=== PATIENT | female | born 1995 | race Hispanic/Latino ===

== ENCOUNTER 2018-09-24 12:40 | Inpatient (IN) | payer SELFPAY ==
[2018-09-24] MEDS ORDERED: Acetaminophen 500 MG TAB ONE (12:58)
[2018-09-24 13:18] LABS: #Lymphocytes 0.8 thou/uL (1.20-3.40); #Monocytes 0.7 thou/uL (0.11-0.59); #Neutrophils 4.8 thou/uL (1.40-6.50); %Eosinophils 0.2 % (0.0-10.0); %Lymphocytes 12.7 % (21.0-51.0); %Monocytes 11.1 % (0.0-10.0); Hemoglobin 13.3 g/dL (12.0-16.0); Mean Corpuscular HGB CONC 31.9 g/dL (32.0-36.0); Mean Corpuscular Hemoglobin 27.6 pg (27.0-31.0); Mean Corpuscular Volume 86.5 fL (78.0-98.0); Mean Platelet Volume 8.8 fL (7.4-10.4); Platelet Count 171 thou/uL (130-400); RBC Distribution Width 12.3 % (11.5-14.5); Red Blood Cell (RBC) Count 4.81 mill/uL (4.20-5.40); White Blood Cell (WBC) Count 6.4 thou/uL (4.8-10.8)
[2018-09-24 13:28] LABS: BHCG - Serum Negative (NEGATIVE); Pregs Control Background? CLEAR/WHITE (CLR/WHITE); Pregs Control Bar Appear? YES (CONTROL BAR)
[2018-09-24 13:42] LABS: Bilirubin Negative (Negative); Blood, Urine 1+ (Negative); Clarity Turbid (Clear); Glucose, Urine (Dipstick) Normal (Negative); Leukocyte 500 Leu/uL (Negative); Nitrite Negative (Negative); Protein, Urine (Dipstick) 30 mg/dL (Neg-Trace); Urobilinogen Normal mg/dL (Less than 2); WBC/HPF 21-50 HPF (0-3)
[2018-09-24 13:48] LABS: ALT (SGPT) 13 U/L (8-55); AST (SGOT) 12 U/L (5-34); Albumin 4.3 g/dL (3.5-5.0); Alkaline Phosphatase 70 U/L (40-150); Anion Gap 12 mmol/L (10-20); BUN (Urea Nitrogen) 9 mg/dL (7.0-18.7); Bilirubin, Total 0.4 mg/dL (0.2-1.2); CK (CPK) 53 U/L (29-168); Calc. Creatinine Clearance 0 mL/min (70-130); Calcium 9.4 mg/dL (7.8-10.44); Carbon Dioxide 24 mmol/L (22-29); Chloride 104 mmol/L (98-107); Estimated GFR-MDRD Greater than 90; Globulin 3.3 g/dL (2.4-3.5); Glucose 115 mg/dL (70-105); Potassium 3.9 mmol/L (3.5-5.1); Protein, Total 7.6 g/dL (6.0-8.3); Sodium 136 mmol/L (136-145)
[2018-09-24 13:56] LABS: Bacteria/HPF 2+ HPF (None Seen); Mucous/LPF 1+ LPF (<2+); Squamous Epithelial 21-50 HPF (0-3)
--- NOTE | 2018-09-24 14:02 | RAD ---
CHEST 1 VIEW: Date: 09/24/18 HISTORY: Cough. COMPARISON: None. FINDINGS: There is right middle lobe air space opacity. No pneumothorax. No significant effusion. Heart size is normal. IMPRESSION: Right middle lobe pneumonia. Follow-up after treatment recommended. POS: HOME
[2018-09-24] MEDS ORDERED: Sodium Chloride 0.9% 200 ML ONE (15:56)
[2018-09-24] MEDS ORDERED: Azithromycin 500 MG VIAL ONE (15:56)
[2018-09-24] MEDS ORDERED: cefTRIAXone\\ROCEPHIN 2 GM VIAL ONE (15:56)
--- NOTE | 2018-09-24 16:31 | CT ---
EXAM: Abdomen and pelvic CT scan without contrast: HISTORY: Left back pain COMPARISON: 10/02/2011 FINDINGS: Anterior right lung base consolidation localizing the right middle lobe, with surrounding groundglass reticulonodular opacities as well as ground glass desiccation of the left lower lobe suggests pneumonia. Liver: Crush unremarkable by noncontrast appearance Gallbladder: Unremarkable. Pancreas: Unremarkable Spleen: Unremarkable. Adrenal glands: Unremarkable. Kidneys: Punctate nonobstructive left nephrolithiasis. There is a punctate calcification of the left renal hilar region which may relate to a punctate vascular calcification. No hydronephrosis of either kidney Bowel: Incompletely evaluated by noncontrast technique Urinary Bladder: The urinary bladder is unremarkable. Adenopathy: No adenopathy within the abdomen or pelvis. Free Air: No free air. Ascites: No ascites. Osseous structures: No acute osseous abnormalities. IMPRESSION: Punctate nonobstructive left urinary tract calculi. Incidental note of consolidation at the lung bases indicative of pneumonia. Recommend continued radio graphic follow-up
[2018-09-24 20:33] VITALS: BMI 32.0
[2018-09-24] MEDS ORDERED: Acetaminophen 325 MG TAB PO PRN (20:55)
[2018-09-24] MEDS ORDERED: Ondansetron PF 4 MG/2 ML Vial IVP PRN ×2 (20:55→22:08)
[2018-09-24] MEDS ORDERED: Sodium Chloride 0.9% 1,000 ML IV SCH (20:55)
[2018-09-24] MEDS ORDERED: Ondansetron ODT 4 MG TAB SL PRN (20:55)
[2018-09-24] MEDS ORDERED: Ibuprofen 200 MG TAB PO PRN (22:08)
[2018-09-24] MEDS ORDERED: Ondansetron ODT 4 MG TAB PO PRN (22:08)
[2018-09-24] MEDS ORDERED: Diabetic Tussin 200 MG/10 ML UDCUP PO PRN (22:08)
[2018-09-24] MEDS ORDERED: Acetaminophen 500 MG TAB PO PRN (22:08)
[2018-09-24] MEDS: Sodium Chloride 0.9% 1,000 ML IV SCH (22:41)
--- NOTE | 2018-09-25 00:51 | HP ---
PRIMARY CARE PROVIDER: [facility]. CHIEF COMPLAINT: Cough and abdominal pain. HISTORY OF PRESENT ILLNESS: This is a 23-year-old female, who presented to [facility] Emergency Department complaining of back, chest, and abdominal pain with associated coughing. The patient noted productive sputum over the last 3 to 4 days with associated fever, taking Motrin for symptomatic relief. The patient denied any known sick contacts or family members with similar symptoms. The patient denied any specific travel history and initially rated the pain 8/10. The patient denied any chronic lung conditions or exposure history, but does work at [employer]. In the emergency room, the patient underwent general evaluation with documented fever up to 100.8 degrees Fahrenheit and meeting sepsis criteria with elevated pulse and respiratory rate. Chest imaging showed a right middle lobe infiltrate at which point, the patient received Zithromax and Rocephin in addition to normal saline x2 liters and acetaminophen. PAST MEDICAL HISTORY: Reviewed and negative. PAST SURGICAL HISTORY: Reviewed and negative. CURRENT MEDICATIONS: Reviewed and negative. ALLERGIES: NO KNOWN DRUG ALLERGIES. FAMILY HISTORY: No inheritable diseases per patient report. SOCIAL HISTORY: Resides in [place], [place]. . Works at [employer]. No current alcohol, tobacco, or illicit drug use. REVIEW OF SYSTEMS: CONSTITUTIONAL: Negative for weight loss or gain, ability to conduct usual activities. SKIN: Negative for rash, itching. EYES: Negative for double vision, pain. ENT/MOUTH: Negative for nose bleeding, neck stiffness, pain, tenderness. CARDIOVASCULAR: Negative for palpitations, dyspnea on exertion, orthopnea. RESPIRATORY: Negative for shortness of breath, wheezing, cough, hemoptysis, fever or night sweats. GASTROINTESTINAL: Negative for poor appetite, abdominal pain, heartburn, nausea, vomiting, constipation, or diarrhea. GENITOURINARY: Negative for urgency, frequency, dysuria, nocturia. MUSCULOSKELETAL: Negative for pain, swelling. NEUROLOGIC/PSYCHIATRIC: Negative for anxiety, depression. ALLERGY/IMMUNOLOGIC: Negative for skin rash, bleeding tendency. Otherwise negative except as stated per HPI. PHYSICAL EXAMINATION: VITAL SIGNS: On admission, blood pressure 122/79, pulse 121, respiratory rate 20, temperature 100.8 degrees Fahrenheit, O2 saturation 96% on room air. GENERAL APPEARANCE: This is a 23-year-old female, alert and oriented x3, smiling, in no acute distress. HEENT: Pupils are equal, round, reactive to light and accommodation. Extraocular muscles are intact. No scleral icterus. No conjunctival injection. Nares are patent. OP is clear. Teeth in good repair. NECK: Supple. No cervical adenopathy. No thyromegaly. No carotid bruits. No JVD appreciated. Cervical spine with full active and passive range of motion. No meningeal signs noted. CHEST: Diminished breath sounds in the bases bilaterally with scattered coarse breath sounds in the right lung base. CARDIOVASCULAR EXAM: S1-S2 without noted murmur, rub, or gallop. Positive tachycardia. ABDOMEN: Rounded, soft, nontender, and nondistended. Bowel sounds are positive in all 4 quadrants. There is no hepatosplenomegaly. No abdominal bruits. No rebound or guarding appreciated. EXTREMITIES: Warm and dry with fair turgor. No clubbing, cyanosis, or asymmetric edema appreciated. Pulses palpable distally at the dorsalis pedis, posterior tibial, and popliteal arteries bilaterally. Capillary refill less than 2 seconds. NEUROLOGIC: Cranial nerves 2 through 12 are grossly intact. No focal or lateralizing signs appreciated. PERTINENT LAB AND X-RAY FINDINGS: Complete metabolic profile within normal limits. Serum beta-hCG negative. Lactic acid level 0.7. CBC showed a white blood cell count of 6.4, hemoglobin 13, hematocrit 42, platelet count 171 with 76% neutrophils. Urinalysis showed positive leukocyte esterase with 7-10 rbc's per high-power field and 21-50 wbc's per high-power field, 21-[address] epithelial cells noted. CT of the abdomen and pelvis dated 09/24/2018, showed nonobstructive left urinary tract calculi. Consolidation of the lung bases noted. Portable chest x-ray dated 09/24/2018, showed right middle lobe infiltrate concerning for pneumonia. ASSESSMENT/PLAN: 1. Sepsis secondary to bacterial pneumonia. The patient will be admitted to the medical floor. Initial IV fluid resuscitation instituted in the emergency room. We will continue Levaquin 750 mg IV q.24 hours. Continue intravenous normal saline at 100 mL/h. Await blood cultures x2. Initial lactic acid level negative. 2. Bacterial pneumonia. Suspect gram-positive cocci. See #1 above. Continue general pulmonary supportive management. Continue Levaquin 750 mg IV q.24 hours. 3. Urinary tract infection, suspected given initial urinalysis results. Continue Levaquin as outlined previously and await final urine culture results. Continue IV fluids as outlined previously. 4. Abdominal pain. Suspect secondarily to #1 and #3. Continue supportive management. Serial abdominal exams. 5. Prophylaxis. SCDs while in bed. Pepcid 20 mg p.o. b.i.d. 6. Code status is full. Surrogate medical decision maker is the patient's spouse. Job ID: [id number]
[2018-09-25 05:41] LABS: Anion Gap 9 mmol/L (10-20); BUN (Urea Nitrogen) 7 mg/dL (7.0-18.7); Calc. Creatinine Clearance 186 mL/min (70-130); Calcium 8.2 mg/dL (7.8-10.44); Carbon Dioxide 23 mmol/L (22-29); Chloride 108 mmol/L (98-107); Estimated GFR-MDRD Greater than 90; Glucose 120 mg/dL (70-105); Potassium 3.5 mmol/L (3.5-5.1); Sodium 136 mmol/L (136-145)
[2018-09-25 05:57] LABS: Band 5 % (5-11); Hemoglobin 11.5 g/dL (12.0-16.0); Lymphocytes 23 % (21-51); MDiff Complete? YES; Mean Corpuscular HGB CONC 31.4 g/dL (32.0-36.0); Mean Corpuscular Hemoglobin 27.5 pg (27.0-31.0); Mean Corpuscular Volume 87.5 fL (78.0-98.0); Mean Platelet Volume 8.6 fL (7.4-10.4); Monocytes 3 % (0-10); Neutrophil 69 % (42-75); Platelet Count 155 thou/uL (130-400); Platelet Morphology Comment Appears Adequate; RBC Distribution Width 12.3 % (11.5-14.5); RBC Morphology Normal; Red Blood Cell (RBC) Count 4.17 mill/uL (4.20-5.40); White Blood Cell (WBC) Count 4.2 thou/uL (4.8-10.8)
[2018-09-25] MEDS ORDERED: Loratadine 10 MG TAB PO PRN (08:04)
[2018-09-25] MEDS ORDERED: Loperamide HCl 2 MG CAP PO PRN (08:04)
[2018-09-25] MEDS ORDERED: Zolpidem Tartrate 5 MG TAB PO PRN (08:04)
[2018-09-25] MEDS ORDERED: hydrALAZINE 20 MG/ML VIAL SLOW IVP PRN (08:04)
[2018-09-25] MEDS ORDERED: Bisacodyl 5 MG TAB PO PRN (08:04)
[2018-09-25] MEDS ORDERED: Senokot S 8.6-50 MG TAB PO PRN (08:04)
[2018-09-25] MEDS ORDERED: Sodium Chloride 0.65% Nasal 44 ML BOT EA NARE PRN (08:04)
[2018-09-25] MEDS ORDERED: Cepastat Lozenges 1 LOZ PO PRN (08:04)
[2018-09-25] MEDS: Famotidine 20 MG TAB PO SCH ×2 (09:51→19:55)
[2018-09-25] MEDS: Saccharomyces boulardii 250 MG CAP PO SCH (09:51)
[2018-09-25] MEDS: Enoxaparin Sodium 40 MG/0.4 ML SYRINGE SC SCH (09:52)
[2018-09-25] MEDS: Sodium Chloride 0.9% 1,000 ML IV SCH ×2 (09:53→19:55)
--- NOTE | 2018-09-25 11:39 | PDOC.PN ---
- Subjective Encounter Start Date: 09/25/18 Encounter Start Time: 07:20 -: old records requested/rev Patient seen and examined. No new complaints. No overnight events - Objective Resuscitation Status - Order Detail: 09/24/18 22:03 Resuscitation Status Routine Resuscitation Status: FULL: Full Resuscitation MAR Reviewed: Yes Vital Signs & Weight: Vital Signs (12 hours) Temp Pulse Resp BP Pulse Ox 09/25/18 09:54 97 09/25/18 07:59 98.4 F 72 16 101/67 97 09/25/18 05:00 98.6 F 09/25/18 03:54 100.0 F H 96 16 116/74 96 09/25/18 00:00 98.5 F 98 16 115/72 95 Weight Weight 169 lb 6 oz I&O: 09/24/18 09/25/18 09/26/18 06:59 06:59 06:59 Intake Total 1330 Balance 1330 Result Diagrams: 09/25/18 05:08 09/25/18 05:08 Radiology Reviewed by me: Yes Phys Exam - Physical Examination Constitutional: NAD HEENT: PERRLA, moist MMs, sclera anicteric Neck: no JVD, supple Respiratory: no wheezing, no rales, no rhonchi Cardiovascular: RRR, no significant murmur, no rub Gastrointestinal: soft, non-tender, no distention, positive bowel sounds Musculoskeletal: no edema, pulses present Neurological: non-focal, normal sensation Lymphatic: no nodes Psychiatric: normal affect, A&O x 3 Skin: no rash, normal turgor Dx/Plan (1) Abdominal pain Code(s): R10.9 - UNSPECIFIED ABDOMINAL PAIN Status: Acute Comment: due to UTI and pneumonia (2) Right middle lobe pneumonia Code(s): J18.1 - LOBAR PNEUMONIA, UNSPECIFIED ORGANISM Status: Acute (3) Sepsis Code(s): A41.9 - SEPSIS, UNSPECIFIED ORGANISM Status: Acute (4) UTI (urinary tract infection) Status: Acute (5) Left nephrolithiasis Code(s): N20.0 - CALCULUS OF KIDNEY Status: Chronic Comment: non obstructive (6) Obesity (BMI 30.0-34.9) Code(s): E66.9 - OBESITY, UNSPECIFIED Status: Chronic - Plan cont current plan of care, plan discussed w/ family, continue antibiotics * continue levaquin * follow culture * continue IVF * discussed with * medication reviewed as below * symptomatic treatment. Review of Systems - Review of Systems ENT: negative: Ear Pain, Ear Discharge, Nose Pain, Nose Discharge, Nose Congestion, Mouth Pain, Mouth Swelling, Throat Pain, Throat Swelling, Other Respiratory: Cough. negative: Dry, Shortness of Breath, Hemoptysis, SOB with Excertion, Pleuritic Pain, Sputum, Wheezing Cardiovascular: negative: chest pain, palpitations, orthopnea, paroxysmal nocturnal dyspnea, edema, light headedness, other Gastrointestinal: negative: Nausea, Vomiting, Abdominal Pain, Diarrhea, Constipation, Melena, Hematochezia, Other Genitourinary: negative: Dysuria, Frequency, Incontinence, Hematuria, Retention , Other Musculoskeletal: negative: Neck Pain, Shoulder Pain, Arm Pain, Back Pain, Hand Pain, Leg Pain, Foot Pain, Other Skin: negative: Rash, Lesions, Yovanny, Bruising, Other - Medications/Allergies Allergies/Adverse Reactions: Allergies Allergy/AdvReac Type Severity Reaction Status Date / Time No Known Allergies Allergy Verified 09/24/18 20:31 Medications: Current Medications Acetaminophen (Tylenol) 1,000 mg PO Q6H PRN PRN Reason: Mild Pain (1-3) Last Admin: 09/25/18 04:13 Dose: 1,000 mg Benzonatate (Tessalon) 100 mg PO Q6H PRN PRN Reason: Cough Bisacodyl (Dulcolax) 10 mg PO DAILYPRN PRN PRN Reason: Constipation Enoxaparin Sodium (Lovenox) 40 mg SC 0900 [facility] Last Admin: 09/25/18 09:52 Dose: Not Given Famotidine (Pepcid) 20 mg PO BID [facility] Last Admin: 09/25/18 09:51 Dose: 20 mg Guaifenesin (Robitussin Sf) 200 mg PO Q4H PRN PRN Reason: Cough Hydralazine HCl (Apresoline) 10 mg SLOW IVP Q4H PRN PRN Reason: SBP > 180 and HR < 70 Levofloxacin 750 mg/ Device 150 mls @ 100 mls/hr IVPB 2300 [facility] Last Admin: 09/24/18 22:47 Dose: 150 mls Sodium Chloride (Normal Saline 0.9%) 1,000 mls @ 100 mls/hr IV .Q10H [facility] Last Admin: 09/25/18 09:53 Dose: 1,000 mls Ibuprofen (Motrin) 400 mg PO Q4H PRN PRN Reason: Fever > 101 Loperamide HCl (Imodium) 2 mg PO PRN PRN PRN Reason: Diarrhea/Loose Stools Loratadine (Claritin) 10 mg PO DAILYPRN PRN PRN Reason: Sinus Symptoms Ondansetron HCl (Zofran Odt) 4 mg PO Q6H PRN PRN Reason: Nausea/Vomiting Ondansetron HCl (Zofran) 4 mg IVP Q6H PRN PRN Reason: Nausea/Vomiting Saccharomyces Boulardii (Florastor) 250 mg PO DAILY [facility] Last Admin: 09/25/18 09:51 Dose: 250 mg Senna/Docusate Sodium (Senokot S) 2 tab PO BID PRN PRN Reason: Constipation Sodium Chloride ([place] Nasal [place] 0.65%) 0 ml EA NARE QIDPRN PRN PRN Reason: Nasal Congestion Throat Lozenges (Cepastat Lozenges) 1 david PO Q2H PRN PRN Reason: Sore Throat Zolpidem Tartrate (Ambien) 5 mg PO HSPRN PRN PRN Reason: Insomnia
[2018-09-25] MEDS: Benzonatate 100 MG CAP PO PRN (19:55)
[2018-09-26] MEDS: Sodium Chloride 0.9% 1,000 ML IV SCH (04:39)
[2018-09-26 05:52] LABS: #Eosinphils 0.1 thou/uL (0.0-0.7); #Lymphocytes 1.3 thou/uL (1.20-3.40); #Monocytes 0.5 thou/uL (0.11-0.59); #Neutrophils 2.2 thou/uL (1.40-6.50); %Eosinophils 2.6 % (0.0-10.0); %Lymphocytes 31.7 % (21.0-51.0); %Monocytes 11.3 % (0.0-10.0); %Neutrophils 54.4 % (42.0-75.0); Hemoglobin 11.6 g/dL (12.0-16.0); Mean Corpuscular HGB CONC 31.4 g/dL (32.0-36.0); Mean Corpuscular Hemoglobin 27.4 pg (27.0-31.0); Mean Corpuscular Volume 87.2 fL (78.0-98.0); Mean Platelet Volume 8.5 fL (7.4-10.4); Platelet Count 188 thou/uL (130-400); RBC Distribution Width 12.2 % (11.5-14.5); Red Blood Cell (RBC) Count 4.23 mill/uL (4.20-5.40); White Blood Cell (WBC) Count 4.1 thou/uL (4.8-10.8)
[2018-09-26 06:21] LABS: ALT (SGPT) 13 U/L (8-55); AST (SGOT) 12 U/L (5-34); Albumin 3.6 g/dL (3.5-5.0); Alkaline Phosphatase 56 U/L (40-150); Anion Gap 10 mmol/L (10-20); BUN (Urea Nitrogen) 5 mg/dL (7.0-18.7); Bilirubin, Total 0.2 mg/dL (0.2-1.2); Calc. Creatinine Clearance 183 mL/min (70-130); Calcium 8.8 mg/dL (7.8-10.44); Carbon Dioxide 23 mmol/L (22-29); Chloride 107 mmol/L (98-107); Estimated GFR-MDRD Greater than 90; Globulin 2.9 g/dL (2.4-3.5); Glucose 87 mg/dL (70-105); Potassium 4.1 mmol/L (3.5-5.1); Protein, Total 6.5 g/dL (6.0-8.3); Sodium 136 mmol/L (136-145)
[2018-09-26 07:51] VITALS: BP 107/72; TEMP 98.1
[2018-09-26] MEDS: Enoxaparin Sodium 40 MG/0.4 ML SYRINGE SC SCH (09:41)
[2018-09-26] MEDS: Benzonatate 100 MG CAP PO PRN (09:42)
[2018-09-26] MEDS: Saccharomyces boulardii 250 MG CAP PO SCH (09:42)
[2018-09-26] MEDS: Famotidine 20 MG TAB PO SCH (09:42)
--- NOTE | 2018-09-26 11:11 | DIS ---
DATE OF ADMISSION: 09/24/2018 DATE OF DISCHARGE: 09/26/2018 PRIMARY CARE PHYSICIAN: [facility] Call Admission. DISCHARGE DISPOSITION: Home. PRIMARY DISCHARGE DIAGNOSES: 1. Right middle lobe community-acquired pneumonia. 2. Urinary tract infection. 3. Sepsis due to problem #1 and #2. 4. Left-sided nonobstructive nephrolithiasis. SECONDARY DISCHARGE DIAGNOSIS: Obesity with BMI 32. PRIMARY PROCEDURE/OPERATION: None. RADIOLOGICAL INVESTIGATION: Abdomen and pelvis CT scan showed nonobstructive nephrolithiasis, right middle lobe pneumonia. SIGNIFICANT LABORATORY DATA: WBC 4.1, hemoglobin 11.6, platelets 188. Creatinine 0.57. LFT normal. Blood culture and urine culture, negative. DISCHARGE MEDICATION: Levaquin 750 mg p.o. daily for 5 more days. CONTRAINDICATION: None. CODE STATUS: Full code. INPATIENT TRAIN DISPATCHER: None. ALLERGIES: NO KNOWN DRUG ALLERGIES. DISCHARGE PLAN: Posthospital, the patient will follow up with primary care physician in 1 week. The patient will need repeat chest x-ray upon followup visit in 1 month. HOSPITAL COURSE: A 23-year-old female, who was admitted by Dr. Ybarra. Please see his H and P for further details. The patient was having cough, shortness of breath. She was admitted to the hospital. She was also complaining of abdominal pain. She had UTI. Her CT abdomen and pelvis showed nonobstructive nephrolithiasis. Her chest x-ray showed right middle lobe pneumonia. We treated her with IV levofloxacin, IV fluid. She had significant improvement by the time of discharge, the patient is tolerating p.o. well, ambulatory, and on room air. She is instructed to repeat chest x-ray done in 1 month. The patient is seen and examined at bedside today. Plan of care discussed with the patient and her . Overall, the patient is medically stable for discharge today. Job ID: [id number]
== END 2018-09-26 11:29 | disposition home or self-care (01) | DRG 871 ==
LOC: ERS 12:40 → ERHOLD 16:47 → T4-A 20:26
PROVIDERS: ADMIT Internal Medicine; ATTEND Internal Medicine
DX: A41.9 Sepsis, unspecified organism (principal); J18.1 Lobar pneumonia, unspecified organism; N39.0 Urinary tract infection, site not specified; N20.0 Calculus of kidney; E66.9 Obesity, unspecified; Z68.32 Body mass index [BMI] 32.0-32.9, adult
CPT/HCPCS: 36415; 71045; 74176; 80048; 80053; 81003; 81015; 82550; 83605; 84703; 85007; 85025; 85027; 87040; 87086; J0456; J0696; J1650; J1956; J3490

== ENCOUNTER 2019-09-11 00:31 | Inpatient (IN) | payer BC ==
[2019-09-11] MEDS ORDERED: hydrALAZINE 20 MG/ML VIAL ONE (01:13)
[2019-09-11] MEDS: Lactated Ringer's 1,000 ML IV SCH (01:26)
[2019-09-11 01:42] VITALS: BMI 34.2
[2019-09-11] MEDS ORDERED: Magnesium Sulfate 20 gm/500 ml 20 GM/500 ML BAG ONE (01:56)
[2019-09-11] MEDS ORDERED: Ibuprofen 800 MG TAB PO PRN (02:04)
[2019-09-11] MEDS ORDERED: Promethazine HCl 25 MG/ML VIAL IM PRN ×2 (02:04→03:03)
[2019-09-11] MEDS ORDERED: NS / Oxytocin 40 units/1000ml 1,000 ML IV PRN (02:04)
[2019-09-11] MEDS ORDERED: Ondansetron PF 4 MG/2 ML Vial IVP PRN ×3 (02:04→14:32)
[2019-09-11] MEDS ORDERED: Calcium Gluc 4.6 MEQ/10 ML (100 MG/ML) SLOW IVP PRN (02:04)
[2019-09-11] MEDS ORDERED: Butorphanol Tartrate 1 MG/ML VIAL SLOW IVP PRN (02:04)
[2019-09-11] MEDS ORDERED: Lidocaine 1% (PF) 30 ML VIAL SC PRN (02:04)
[2019-09-11] MEDS ORDERED: Zolpidem Tartrate 5 MG TAB PO PRN (02:04)
[2019-09-11] MEDS ORDERED: HYDROcodone/Acetaminophen 5/325 mg Tablet PO PRN ×4 (02:04→14:32)
[2019-09-11] MEDS ORDERED: hydrALAZINE 20 MG/ML VIAL SLOW IVP PRN ×2 (02:04→14:32)
[2019-09-11 02:15] LABS: Hemoglobin 11.8 g/dL (12.0-16.0); Mean Corpuscular HGB CONC 33.5 g/dL (32.0-36.0); Mean Corpuscular Volume 86.7 fL (78.0-98.0); Platelet Count 142 thou/uL (130-400); RBC Distribution Width 15.1 % (11.5-14.5); Red Blood Cell (RBC) Count 4.05 mill/uL (4.20-5.40); White Blood Cell (WBC) Count 12.5 thou/uL (4.8-10.8)
[2019-09-11] MEDS ORDERED: Magnesium Sulfate 20 GM/WATER 500 ML BAG IVPB SCH (02:15)
[2019-09-11] MEDS ORDERED: Lactated Ringer's 1,000 ML IV SCH (02:15)
[2019-09-11 02:28] LABS: ALT (SGPT) 8 U/L (8-55); AST (SGOT) 12 U/L (5-34); Albumin 3.7 g/dL (3.5-5.0); Alkaline Phosphatase 160 U/L (40-110); Anion Gap 15 mmol/L (10-20); BUN (Urea Nitrogen) 12 mg/dL (7.0-18.7); Bilirubin, Total 0.2 mg/dL (0.2-1.2); Calc. Creatinine Clearance 145 mL/min (70-130); Calcium 8.8 mg/dL (7.8-10.44); Carbon Dioxide 21 mmol/L (22-29); Chloride 104 mmol/L (98-107); Estimated GFR-MDRD 85; Globulin 3.3 g/dL (2.4-3.5); Glucose 102 mg/dL (70-105); Potassium 4.1 mmol/L (3.5-5.1); Sodium 136 mmol/L (136-145)
[2019-09-11] MEDS ORDERED: Fentanyl 4 mcg/Bup 0.1% Cadd 100 ML ONE ×2 (02:40→10:44)
[2019-09-11] MEDS: Magnesium Sulfate 20 gm/500 ml 20 GM/500 ML BAG IVPB SCH ×3 (02:44→21:02)
[2019-09-11 02:45] LABS: HBSAg Index 0.14 S/CO (0-0.99); Hep B Surf Ag Non-Reactive S/CO (NonReactive)
--- NOTE | 2019-09-11 02:48 | HP ---
TIME OF SERVICE: 0215 hours. HISTORY OF PRESENT ILLNESS: Ms. Jeremy Atwood is a 24-year-old 2, para 1, with EDC of 09/12, placing her at 39 weeks and 5 days who presents complaining of spontaneous rupture of membranes, contractions since midnight. She denies headache, scotoma or blurred vision. Upon presentation, she was noted to have blood pressures to 200/100 and has received Apresoline x2 doses. Blood pressure is now in the 150s over 90s. DTRs are 1 to 2+. 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 The patient's antepartum record reflects no hypertensive blood pressures during her . She has had an uncomplicated except for maternal obesity with a BMI over 30. She had a normal 50 g, has blood type O positive, antibody negative. Pap negative. Rubella immune. VDRL nonreactive. Hepatitis B, GC, chlamydia negative. Negative urine drug screen at early . Normal 32-week labs. Group B strep negative. The patient has had a previous 6-pound 11-ounce spontaneous vaginal delivery. PAST MEDICAL HISTORY: None. PAST SURGICAL HISTORY: None. ALLERGIES: DENIES. MEDICATIONS: vitamins. SOCIAL HISTORY: Denies tobacco, alcohol, or IV drug use. FAMILY HISTORY: Noncontributory. REVIEW OF SYSTEMS: Noncontributory. PHYSICAL EXAMINATION: GENERAL: female, in mild distress during contractions. VITAL SIGNS: Blood pressure 152/88, pulse 98, respirations 18, temperature 98.6. HEENT: Within normal limits. LUNGS: Clear to auscultation bilaterally. HEART: Regular rhythm. ABDOMEN: Soft in between contractions, nontender. FHTs 140s. Vulva without lesions. Vagina without discharge. Cervical exam by RN was 6, 75, -2. Bag of water ruptured, encephalic. EXTREMITIES: Trace to 1+ edema. DTRs 1+. Of note, the patient had scheduled preadmission COVID-19 for next week prior to induction. The patient denies COVID-19 symptoms, has not been COVID-19 tested. IMPRESSION: 39-40 weeks gestation with spontaneous labor, spontaneous rupture of membranes, and elevated blood pressures into severe range. PLAN: 1. Admission. 2. Apresoline as needed. 3. Magnesium sulfate. 4. PIH labs. 5. Anesthesia consult for labor epidural. 6. Anticipate spontaneous vaginal delivery. Job ID: [id number]
[2019-09-11] MEDS ORDERED: Lactated Ringer's 500 ML IV PRN (03:03)
[2019-09-11] MEDS ORDERED: Acetaminophen 325 MG TAB PO PRN (03:03)
[2019-09-11] MEDS ORDERED: diphenhydrAMINE 50 MG/ML VIAL IVP PRN (03:03)
[2019-09-11] MEDS ORDERED: Naloxone HCl 0.4 mg/ml Vial IVP PRN ×2 (03:03)
[2019-09-11] MEDS ORDERED: EPHEDRINE 25 MG/5 ML SYRINGE SLOW IVP PRN (03:03)
[2019-09-11 03:07] LABS: Creatinine, Urine 131.56 mg/dL (47-110)
[2019-09-11 03:08] LABS: Amphetamine Not Detected (NotDetected); Barbiturates Screen Not Detected (NotDetected); Benzodiazepine Screen Not Detected (NotDetected); Cocaine Metabolite Screen Not Detected (NotDetected); Medtox Control Line Valid? VALID (VALID); Medtox Reader # READER 4; Methadone Not Detected (NotDetected); Methamphetamine Not Detected (NotDetected); Opiate Screen Not Detected (NotDetected); Oxycodone Screen Not Detected (NotDetected); Phencyclidine (PCP) Not Detected (NotDetected); THC/Cannabinoid Screen Not Detected (NotDetected); Tricyclic Screen Not Detected (NotDetected)
[2019-09-11] MEDS ORDERED: Fentanyl 4 mcg/Bupivacaine 0.1% Cassette 100 ML EPIDURAL SCH (03:15)
[2019-09-11] MEDS ORDERED: Communication Order-Pharmacy FS SCH (03:15)
[2019-09-11 04:52] LABS: Syphilis Antibody Nonreactive (Nonreactive); Syphilis Antibody Index 0.03 S/CO (<1.00 Non-Reactive)
--- NOTE | 2019-09-11 08:00 | PRG ---
DATE OF SERVICE: 09/11/2019 TIME OF SERVICE: 0730 hours. SUBJECTIVE: The patient is resting comfortably with a labor epidural. OBJECTIVE: VITAL SIGNS: Blood pressure currently is 128/86, pulse 85, respirations 18. Urine output ranging between 80 mL/hour and 120 mL/hour, very concentrated in appearance. Category 1 heart rate tracing. Contractions q.5-6 minutes. Last cervical exam by RN was approximately 8 cm dilated. LABORATORY DATA: Revealed hematocrit of 35% and normal platelet count at 142, normal creatinine at 0.81 and normal LFTs. However, the patient did have an elevated protein to creatinine ratio of approximately 2.0. Urine drug screen was negative. IMPRESSION: Thirty-nine weeks gestation with severe preeclampsia by blood pressure criteria and backed by urine-protein responsive to 2 doses of Apresoline, now on magnesium sulfate, status post SROM with progression through active phase of labor. PLAN: Continue magnesium sulfate. Anticipate spontaneous vaginal delivery, Apresoline as needed, Pitocin augmentation if needed. Dr. Lobo Davis, patient's primary industrial maintenance technician, will be taking over as [facility] Obstetric Hospitalist at 0800 hours and will complete patient. Job ID: [id number]
[2019-09-11] MEDS ORDERED: NS w/ Oxytocin 10 units 500 ML ONE (08:14)
--- NOTE | 2019-09-11 09:34 | PDOC.LDPN ---
Labor & Delivery Progress Note - Subjective Subjective: comfortable - Objective Vital signs reviewed and normal: yes General: resting Dilation: 8 Effacement: 75% Station: 0 FHT: category 1 - Assessment (1) 39 weeks gestation of Code(s): Z3A.39 - 39 WEEKS GESTATION OF Current Visit: Yes Status : Acute (2) Severe preeclampsia Code(s): O14.10 - SEVERE PRE-ECLAMPSIA, UNSPECIFIED TRIMESTER Current Visit: Yes Status: Acute (3) Active labor at term Code(s): TKR8855 - Current Visit: Yes Status: Acute Plan: continue plan of care -: Will start pitocin for augmentation, magnesium infusion for severe PIH, reviewed plan of care w pt.
--- NOTE | 2019-09-11 14:27 | PDOC.OPDEL ---
OB Operative/Delivery Note Delivery Dr/Surgeon: Ryan Pre-Delivery Diagnosis: active labor, other (severe preeclampsia) Weeks gestation: 39 Anesthesia: epidural - Findings A Sex: male - 1 min: 8 - 5 min: 9 - Additional Findings/Plan Placenta delivered: spontaneous Repaired Obstetrical Laceration: 2nd degree (and right periurethral) Estimated blood loss: 700ml Compilations/Other Findings: active periurethral bleeding with difficulty visualized due to pt discomfort and obesity Post delivery plan: recovery in LICU
[2019-09-11] MEDS ORDERED: diphenhydrAMINE 25 MG CAP PO PRN (14:32)
[2019-09-11] MEDS ORDERED: Milk Of Magnesia 30 ML UDCUP PO PRN (14:32)
[2019-09-11] MEDS ORDERED: Calcium Gluconate 4.6 MEQ in Sodium Chloride 0.9% 100 ML IVPB PRN (14:32)
[2019-09-11] MEDS ORDERED: Benzocaine-Menthol 82.5 ML CAN TOP PRN (14:32)
[2019-09-11] MEDS ORDERED: Lanolin Ointment 7 GM TUBE TOP PRN (14:32)
[2019-09-11] MEDS ORDERED: NS / Oxytocin 40 units/1000ml 1,000 ML IV SCH (14:32)
[2019-09-11] MEDS ORDERED: Bisacodyl 10 MG SUPP PR PRN (14:32)
[2019-09-11] MEDS ORDERED: Preparation H Ointment 28 GM TUBE PR PRN (14:32)
[2019-09-11] MEDS: Docusate Calcium (SURFAK) 240 MG CAP PO SCH (21:03)
[2019-09-11] MEDS: Ibuprofen 800 MG TAB PO SCH (22:19)
[2019-09-12] MEDS: Ibuprofen 800 MG TAB PO SCH ×3 (06:10→21:20)
[2019-09-12] MEDS: Magnesium Sulfate 20 gm/500 ml 20 GM/500 ML BAG IVPB SCH (06:46)
[2019-09-12 07:23] LABS: ALT (SGPT) 18 U/L (8-55); AST (SGOT) 19 U/L (5-34); Albumin 2.6 g/dL (3.5-5.0); Alkaline Phosphatase 105 U/L (40-110); Anion Gap 8 mmol/L (10-20); BUN (Urea Nitrogen) 10 mg/dL (7.0-18.7); Bilirubin, Total 0.4 mg/dL (0.2-1.2); Calc. Creatinine Clearance 203 mL/min (70-130); Calcium 6.4 mg/dL (7.8-10.44); Carbon Dioxide 24 mmol/L (22-29); Chloride 105 mmol/L (98-107); Estimated GFR-MDRD Greater than 90; Globulin 2.6 g/dL (2.4-3.5); Glucose 82 mg/dL (70-105); Potassium 3.9 mmol/L (3.5-5.1); Protein, Total 5.2 g/dL (6.0-8.3); Sodium 133 mmol/L (136-145)
[2019-09-12] MEDS ORDERED: Calcium Carbonate 500 MG ChewTAB PO SCH (08:00)
--- NOTE | 2019-09-12 08:00 | PDOC.EVN ---
Event Note - Event Note Event Note: LICU S: No PIH symptoms. Alert and oriented. O: Blood pressure 100-125/60-70. U/O>100 ml per hour. HGB 9.0. Serum Calcium 6.4-asymptomatic. LFT's/Creatinine are normal. ABD soft/non tender. A/P: PPD 0-1. for severe preeclampsia. Blood pressures are normalized. Good u/o. Hypocalcemia related to Magnesium infusion. No clinical hypocalcemic issues. Will give oral tums-2 tabs..Plan to discontinue magnesium at 1300 -24 hour p/p...HGB 9--vital stable and asymptomatic.
[2019-09-12] MEDS ORDERED: Adacel (T-DAP) 0.5 ML SYRINGE IM ONE (09:00)
[2019-09-12] MEDS: Ferrous Sulfate 325 MG TAB PO SCH ×3 (09:10→17:22)
[2019-09-12] MEDS: Docusate Calcium (SURFAK) 240 MG CAP PO SCH ×2 (09:10→21:20)
[2019-09-12] MEDS: Prenatal Vitamin 1 TAB PO SCH (09:10)
[2019-09-12] MEDS: Lactated Ringer's 1,000 ML IV SCH (21:05)
[2019-09-13] MEDS: Ibuprofen 800 MG TAB PO SCH (05:13)
--- NOTE | 2019-09-13 06:06 | PDOC.PP ---
Post Progress Note Post Day #: 2 Subjective: Doing well this morning, no complaints. PO intake tolerated: yes Flatus: yes Ambulation: yes Vital Signs (12 hours) Temp Pulse Resp BP Pulse Ox 09/13/19 05:10 98.5 F 60 16 106/67 09/13/19 00:20 98.2 F 77 18 140/64 09/12/19 19:50 98.7 F 84 16 117/65 99 Weight Weight 193 lb - Physical Examination General: NAD Respiratory: non-labored breathing Abdominal: lochia (normal), no distention, appropriately TTP Fundus firm & at: below umbilicus Neurological: no gross focal deficits Psychiatric: A&Ox3, normal affect Result Diagrams: 09/12/19 06:26 09/12/19 06:26 Additional Labs: Post Labs Blood Type O POSITIVE 09/11/19 02:26 Hep Bs Antigen Non-Reactive S/CO (NonReactive) 09/11/19 02:06 (1) Active labor at term Code(s): [id number] - Status: Acute (2) Severe preeclampsia Code(s): O14.10 - SEVERE PRE-ECLAMPSIA, UNSPECIFIED TRIMESTER Status: Acute (3) Obesity (BMI 30.0-34.9) Code(s): E66.9 - OBESITY, UNSPECIFIED Status: Chronic - Assessment/Plan PPD 2, doing well. BPs mostly normal with occasional mild range. Would like to go home today, if possible. Will continue to monitor BPs today. Anticipate d/ c this afternoon or tomorrow morning.
[2019-09-13] MEDS: Prenatal Vitamin 1 TAB PO SCH (09:36)
[2019-09-13] MEDS: Ferrous Sulfate 325 MG TAB PO SCH (09:36)
[2019-09-13] MEDS: Docusate Calcium (SURFAK) 240 MG CAP PO SCH (09:36)
[2019-09-13 10:04] VITALS: BP 127/55; TEMP 98.6
== END 2019-09-13 13:06 | disposition home or self-care (01) | DRG 807 ==
LOC: L&D/OP 00:31 → L&D 01:58 → 3SW 09-12 16:20
PROVIDERS: ADMIT Obstetrics & Gynecology; ATTEND Obstetrics & Gynecology
PROC: 10E0XZZ Delivery of Products of Conception, External Approach (ICD-10-PCS; principal; 2019-09-11)
PROC: 0KQM0ZZ Repair Perineum Muscle, Open Approach (ICD-10-PCS; 2019-09-11)
DX: O14.14 Severe pre-eclampsia complicating childbirth (principal); Z37.0 Single live birth; Z3A.39 39 weeks gestation of pregnancy; O70.1 Second degree perineal laceration during delivery; E66.9 Obesity, unspecified; Z68.34 Body mass index [BMI] 34.0-34.9, adult
CPT/HCPCS: 36415; 51702; 80053; 80306; 82570; 83735; 84156; 85014; 85018; 85027; 86780; 86850; 86900; 86901; 87340; J0360; J2590; J3475